=== PATIENT | female | born 1990 | race Two or more races ===

== ENCOUNTER 2020-03-20 11:47 | Emergency (ER) | payer BC ==
[~2020-03-20] VITALS: Ht 160 cm; Wt 71.7 kg
--- NOTE | 2020-03-20 12:00 | NUR ---
Pt.was seen by .
[2020-03-20 12:23] LABS: *URINE HCG, QUAL NEGATIVE (NEGATIVE)
--- NOTE | 2020-03-20 12:38 | NUR ---
at bedside with explanation of pt.dx.
[2020-03-20] MEDS ORDERED: CEphaleXIN 500 MG CAPSULE PO ONE (12:45)
[2020-03-20] MEDS ORDERED: CEphaleXIN 500 MG CAPSULE ONE (12:51)
[2020-03-20 12:56] VITALS: BP 131/81
[2020-03-20] MEDS ORDERED: KETOROLAC TROMETHAMINE 30 MG INJ IM ONE (13:15)
[2020-03-20] MEDS ORDERED: KETOROLAC TROMETHAMINE 30 MG INJ ONE (13:17)
== END 2020-03-20 13:57 | disposition home or self-care (01) ==
LOC: ER 11:47
DX: G51.0 Bell's palsy (principal); R20.2 Paresthesia of skin; L02.01 Cutaneous abscess of face
CPT/HCPCS: 84703; 96372; 99283; J1885; A4663